=== PATIENT | male | born 1950 | race African-American/Black ===

== ENCOUNTER → 2022-09-18 | Outpatient (CLI) | payer MEDICAID, SELFPAY ==
[2022-09-18 11:49] LABS: Hematocrit 40.8 % (40-54); Hemoglobin 12.9 g/dL (13.0-16.5); Mean Corp Hgb Conc 31.6 g/dL (32-36); Mean Corpuscular Hgb 31.6 pg (27.0-32.0); Mean Platelet Vol. 8.3 fl (6.2-12.0); Platelet Count 215 K/mm3 (150-450); RBC Distribution Width CV 12.8 % (11.6-14.6); RBC Distribution Width SD 46.9 fl (35.1-43.9); Red Blood Count 4.08 M/mm3 (4.6-6.2); White Blood Count 6.7 K/mm3 (4.4-11.0)
[2022-09-18 11:55] LABS: Ammonia < 10.0 umol/L (11-32)
[2022-09-18 12:11] LABS: Valproic Acid (Depakene) Level 63 ug/mL (50-100)
[2022-09-18 12:15] LABS: ALB/GLOB Ratio 0.9 RATIO (0.9-2.4); AST(SGOT) 30 U/L (15-37); Alanine Aminotransfer ALT/SGPT 35 U/L (16-61); Albumin, Serum 3.4 g/dL (3.2-5.0); Alkaline Phosphatase 61 U/L (45-117); Anion Gap 0 (5-15); BUN 10 mg/dL (7-18); Calcium,Total 9.1 mg/dL (8.5-10.1); Chloride 104 mmol/L (98-107); Creatinine, Serum 0.91 mg/dL (0.70-1.30); EST Glomerular Filtration Rate 87 mL/min (>60); Est Glom Filt Rate - Afr Amer 105 mL/min (>60); Globulin 3.8 g/dL (2.2-4.2); Glucose 100 mg/dL (74-106); Potassium 4.4 mmol/L (3.5-5.1); Protein, Total 7.2 g/dL (6.4-8.2); Sodium Level 139 mmol/L (136-145)
[2022-09-18 12:19] LABS: Hemoglobin A1c 4.7 % (3.8-5.6)
== END | disposition home or self-care (01) ==
LOC: LAB 11:18
PROVIDERS: Visit Provider Psychiatry & Neurology Psychiatry
DX: Z79.899 Other long term (current) drug therapy (principal)
CPT/HCPCS: 36415; 80053; 80164; 82140; 83036; 85027

== ENCOUNTER → 2023-05-22 | Outpatient (CLI) | payer MEDICAID, SELFPAY ==
[2023-05-22 08:46] LABS: Hematocrit 43.6 % (40-54); Hemoglobin 13.8 g/dL (13.0-16.5); Mean Corp Hgb Conc 31.7 g/dL (32-36); Mean Corpuscular Hgb 31.2 pg (27.0-32.0); Mean Corpuscular Volume 98.4 fL (80-94); Mean Platelet Vol. 8.1 fl (6.2-12.0); Platelet Count 195 K/mm3 (150-450); RBC Distribution Width CV 12.7 % (11.6-14.6); Red Blood Count 4.43 M/mm3 (4.6-6.2); White Blood Count 6.1 K/mm3 (4.4-11.0)
[2023-05-22 09:12] LABS: Ammonia < 10.0 umol/L (11-32)
[2023-05-22 09:19] LABS: Valproic Acid (Depakene) Level 85 ug/mL (50-100)
[2023-05-22 11:07] LABS: AST(SGOT) 24 U/L (15-37); Alanine Aminotransfer ALT/SGPT 20 U/L (16-61); Albumin, Serum 3.6 g/dL (3.2-5.0); Alkaline Phosphatase 51 U/L (45-117); Anion Gap 3 (5-15); BUN 10 mg/dL (7-18); BUN/Creat Ratio 10.1 RATIO (10-20); Calcium,Total 9.3 mg/dL (8.5-10.1); Chloride 105 mmol/L (98-107); Creatinine, Serum 0.99 mg/dL (0.70-1.30); EST Glomerular Filtration Rate 78 mL/min (>60); Est Glom Filt Rate - Afr Amer 95 mL/min (>60); Globulin 3.5 g/dL (2.2-4.2); Glucose 101 mg/dL (74-106); Potassium 4.3 mmol/L (3.5-5.1); Prolactin 22.8 ng/mL; Protein, Total 7.1 g/dL (6.4-8.2); Sodium Level 140 mmol/L (136-145)
== END | disposition home or self-care (01) ==
PROVIDERS: Referring Provider Psychiatry & Neurology Psychiatry; Visit Provider Psychiatry & Neurology Psychiatry
DX: Z79.899 Other long term (current) drug therapy (principal)
CPT/HCPCS: 36415; 80053; 80164; 82140; 84146; 85027

== ENCOUNTER → 2023-11-07 | Outpatient (CLI) | payer MEDICARE, MEDICAID, SELFPAY ==
[2023-11-07 08:27] LABS: Absolute Lymphocyte Count 2.19 X10^3/uL (0.83-4.51); Absolute Neutrophil Count 2.8 X10^3/uL (2.0-7.7); Basophil# 0.02 X10^3/uL; Basophil% 0.3 % (0-1); Eosinophil# 0.26 X10^3/uL; Eosinophils% 4.5 % (0-5); Hematocrit 42.9 % (40-54); Hemoglobin 13.2 g/dL (13.0-16.5); Lymphocyte # 2.19 X10^3/ul (0.83-4.51); Lymphocyte % 38.1 % (19-41); Mean Corp Hgb Conc 30.8 g/dL (32-36); Mean Corpuscular Hgb 30.6 pg (27.0-32.0); Mean Corpuscular Volume 99.3 fL (80-94); Mean Platelet Vol. 8.7 fl (6.2-12.0); Monocyte# 0.52 X10^3/uL; NRBC Flagged by Analyzer 0 % (0-5); Neutrophil # 2.75 X10^3/uL (2.7-7.7); Neutrophil % 47.9 % (47-70); Platelet Count 211 K/mm3 (150-450); RBC Distribution Width CV 12.3 % (11.6-14.6); RBC Distribution Width SD 45.2 fl (35.1-43.9); Red Blood Count 4.32 M/mm3 (4.6-6.2); White Blood Count 5.8 K/mm3 (4.4-11.0)
--- OUTSIDE RECORDS SUMMARY | 2023-11-07 08:28 | XMS RPT_ITS | CCD ---
Author Name Unknown Address [address] [place] [address] Organization [facility] Care Team Providers Care Registered Route Associate Name Role Phone PHYSICIAN, NONE Primary Care Physician Unavailab le MORGAN HATHAWAY DO Primary Care Physician MORGAN HATHAWAY DO Attending Unavailable MORGAN HATHAWAY DO Primary Care Unavailable KRISTIN DE LOS SANTOS, DR MONTES Attending Unavailable PHYSICIAN, NONE Primary Care Unavailable MORGAN HATHAWAY DO Attending Unavailable MORGAN HATHAWAY DO Primary Care Unavailable Medications Current Medications Medication Drug Class(es) Dates Sig (Normalized) Sig (Original) acetaminophen 325 mg / HYDROcodone bitartrate 5 mg oral tablet (1 source) Opioid Agonist Start: 10-02-2021 End: 10-05-2021 take 1 tablet by mouth every four hours as needed for pain [place] 325- 5 mg oral tablet Dose = 1 tab(s), Oral, q4h, PRN for pain, X 3 day(s), # 12 tab(s), 0 Refill(s), Fracture of humerus, 93 Start Date: 10/02/21 Stop Date: 10/05/21 Status: Ordered benztropine mesylate 1 mg oral tablet (3 sources) Anticholinergic, Antihistamine Start: 11-24-2021 benztropine 1 mg oral tablet Dose : 1 mg = 1 tab(s), Oral, BID, # 60 tab(s), 0 Refill(s) Start Date: 11/24/21 Status: Ordered DME MISCellaneous (1 source) Start: 02-12-2022 DME MISCellaneous See Instructions, dispense one shower chair, dx R26.81., # 1 EA, 0 Refill(s), Gait instability, 195, cm, 11/24/21 9:47:00 EST, Height, 86.5, kg, 11/24/21 9:47:00 EST, Dosing Weight Start Date: 02/12/22 Status: Ordered haloperidol 5 mg oral tablet (3 sources) Typical Antipsychotic Start: 11-24-2021 haloperidol 5 mg oral tablet Dose : 5 mg = 1 tab(s), Oral, BID, # 60 tab(s), 0 Refill(s) Start Date: 11/24/21 Status: Ordered 24 hr mirabegron 25 mg extended release oral tablet (2 sources) beta3-Adrenergic Agonist Start: 12-03-2022 mirabegron 25 mg oral tablet, extended release Dose : 25 mg = 1 tab(s), Oral, qDay, # 30 tab(s), 2 Refill(s), Pharmacy: [id number], Urge incontinence, 195, cm, 12/03/22 14:35:00 EST, Height Start Date: 12/03/22 Status: Ordered divalproex sodium 500 mg delayed release oral tablet (3 sources) Mood Stabilizer, Anti-epileptic Agent Start: 11-24-2021 Depakote 500 mg oral delayed release tablet Dose : 1,000 mg = 2 tab(s), Oral, qHS, 0 Refill(s) Start Date: 11/24/21 Status: Ordered Completed/Discontinued Medications Medication Drug Class(es) Dates Sig (Normalized) Sig (Original) haloperidol decanoate 100 mg/mL intramuscular solution (3 sources) Start: 11-24-2021 haloperidol decanoate 100 mg/mL intramuscular solution Dose : 100 mg = 1 mL, Intramuscular, q4wk, # 1 mL, 0 Refill(s) Start Date: 11/24/21 Status: Ordered Problems Problem Classification Problem Date Documented Date Episodic/Chronic Cancer of prostate (3 sources) History of malignant neoplasm of prostate; Translations: [Personal history of malignant neoplasm of prostate] 12-03-2022 Episodic E Codes: Fall (1 source) Fall in home 02-14-2022 Fracture of upper limb (1 source) Closed fracture of shaft of humerus; Translations: [Unspecified fracture of shaft of humerus, unspecified arm, initial encounter for closed fracture] Onset: 10-02-2021 Episodic Genitourinary symptoms and ill-defined conditions (6 sources) Overflow incontinence of urine; Translations: [Urge incontinence of urine] 12-03-2022 Chronic Mood disorders (4 sources) Bipolar disorder; Translations: [Depressed bipolar I disorder in full remission] 11-24-2021 Chronic Other nervous system disorders (1 source) Abnormal gait 02-14-2022 Episodic Other nervous system disorders (1 source) Tremor 11-24-2021 Episodic Residual codes; unclassified (2 sources) Clubbing of nail 12-03-2022 Episodic Residual codes; unclassified (2 sources) Family history of diabetes mellitus 12-03-2022 Episodic Residual codes; unclassified (1 source) H/O: radiation exposure; Translations: [Personal history of irradiation] Episodic Schizophrenia and other psychotic disorders (2 sources) Schizophrenia 12-03-2022 Chronic Screening and history of mental health and substance abuse codes (2 sources) H/O: psychiatric disorder 12-03-2022 Episodic Unclassified (3 sources) Finding of employment status 11-24-2021 Unclassified (1 source) Intellectual disability 11-24-2021 Unclassified (3 sources) Patient encounter status 11-24-2021 Results Test Name Value Interpretation Reference Range Facil ity Vital Signs Date Time Vital Sign Value Performing Clinician Faci lity 10-02-2021 11:25-0500 Diastolic blood pressure 83 mm[Hg] NATANAEL SANZ MD [facility] 10-02-2021 11:25-0500 Heart rate 52 /min NATANAEL SANZ MD [facility] 10-02-2021 11:25-0500 Respiratory rate 18 /min NATANAEL SANZ MD [facility] 10-02-2021 11:25-0500 Systolic blood pressure 130 mm[Hg] NATANAEL SANZ MD [facility] 10-02-2021 10:19-0500 Body height 183 cm NATANAEL SANZ MD [facility] 10-02-2021 10:19-0500 Body temperature 97.52 [degF] NATANAEL SANZ MD [facility] 10-02-2021 10:19-0500 Body weight 93 kg NATANAEL SANZ MD [facility] 10-02-2021 10:19-0500 Diastolic blood pressure 79 mm[Hg] NATANAEL SANZ MD [facility] 10-02-2021 10:19-0500 Heart rate 61 /min NATANAEL SAZN MD [facility] 10-02-2021 10:19-0500 Respiratory rate 20 /min NATANAEL SANZ MD [facility] 10-02-2021 10:19-0500 Systolic blood pressure 154 mm[Hg] NATNAAEL SANZ MD [facility] Encounters Encounter Date Encounter Type Care Provider Facility Start: 12-20-2022 End: 12-21-2022 ambulatory MORGAN HATHAWAY DO Facility:B Start: 12-20-2022 End: 12-20-2022 Well adult monitoring check done MORGAN HATHAWAY DO [facility] Start: 12-20-2022 End: 12-20-2022 Patient encounter procedure MORGAN HATHAWAY DO [facility] Start: 02-23-2022 End: 02-24-[address] JYOTI FOSTER MD Facility:[facility] Start: 02-23-2022 End: 02-23-[address] JYOTI FOSTER MD [facility] Start: 10-02-2021 End: 10-02-2021 Emergency department patient visit NATNAAEL SANZ MD [facility] Start: 08-04-2021 End: 08-04-[address] JYOTI FOSTER MD [facility] Procedures Date Procedure Procedure Detail Performing Clinician Biopsy NATANAEL Johns History of radiation therapy History of radiation therapy MORGAN HATHAWAY DO Payers Date Payer Category Payer Unknown [id number] 1950 Unknown [id number] 1950 Unknown [id number] 1950 Unknown [id number] Social History Date Type Detail Facility Occasional tobac co smoker (finding) [facility] Sex Assigned At [facility] Start: 10-02-2021 End: 11-24-2021 Smokes tobacco daily (finding) [facility] Evaluation + Plan note 02-23-2022 Note Date & Type Note Facility 02-23-2022 Evaluation + Plan note Diagnostic Tests PendingProlactin Level 02/23/22 [facility] Hospital Discharge instructions 10-02-2021 Note Date & Type Note Facility 10-02-2021 Hospital Discharg e instructions Patient Education 10/02/2021 11:00:15 Understanding a Humerus Fracture Understanding a Humerus Fracture When you have a humerus fracture, it means that your upper arm bone is broken.This type of fracture most often occurs along the middle of the bone or at the end of the bone near the shoulder. Less often, it occurs at the end of the bone near the elbow. This mainly happens in kids or young adults. The bone may be cracked, or it may be broken into 2 or more pieces. The pieces of bone may be lined up or they may have moved out of place. Sometimes, the bone may break through the skin. Nearby nerves, tissues, and joints also may be damaged. Depending on the severity of the fracture, healing may take several months or longer. What causes a humerus fracture? A humerus fracture is most often the result of trauma. This may be from a fall, blow, accident, or sports injury. Symptoms of a humerus fracture Symptoms can include pain, swelling, and bruising. If the bone breaks through the skin, bleeding can occur at the site. It may be hard to move and use the shoulder, arm, or elbow as you would normally. Treating a humerus fracture Treatment depends on where the bone is broken and how serious the break is. If needed, the bone is put back into place. This may be done with or without surgery. If surgery is needed, the surgeon may use devices such as pins, plates, or screws to hold the bone together. You will then wear a sling, splint, or cast to keep the bone in place and protect it from injury during healing. Other treatments may be also used to help reduce symptoms or regain function. These include: Cold packs. Putting an ice pack on the injured area may help reduce swelling and pain. Pain medicines. Taking prescription or rete-smr-pqosthl pain medicines may help reduce pain and swelling. Exercises. Doing certain exercises at home or with a physical therapist can help improve strength, flexibility, and range of motion in the shoulder, arm, or elbow. Possible complications of a humerus fracture These can include: Poor healing of the bone Weakness, stiffness, or loss of range of motion in the shoulder, arm, or elbow Osteoarthritis in the shoulder or elbow When to call your healthcare provider Call your healthcare provider right away if you have any of these: Fever of 100.4 F (38 C) or higher, or as directed Symptoms that don t get better with treatment, or get worse Numbness, tingling, coldness, or swelling in your arm, hand, or fingers Fingernails that turn blue or andrews in color A sling, splint, or cast that is damaged or feels too tight or loose New symptoms [id number] [employer]. [address] [place] [address]. All rights reserved. This information is not intended as a substitute for professional medical care. Always follow your healthcare professional's instructions. Follow Up Care 10/02/2021 10:05:26 With:DO ISAAC ABERNATHY DO Address: When:1-2 days With:Go to emergency room if symptoms worsen Address:Unknown When:2-[address] [facility] Evaluation + Plan note Note Date & Type Note Facility Evaluation + Plan note No data available for this section [facility] Evaluation + Plan note Laboratory Note Date & Type Note Facility Evaluation + Plan note Future Appointments Appointment Date:02/04/2023 02:00:00 PM Scheduled Provider:MORGAN HATHAWAY DO Location:[facility] Appointment Type:[facility] Medicare Future Scheduled TestsMicroalbumin Level Urine 12/03/22Vitamin D Level 12/03/22 [facility] Hospital Discharge instructions Note Date & Type Note Facility Hospital Discharge instructions No data available for this section [facility] Progress note Note Date & Type Note Facility Progress note No data available for this section [facility] Summary Purpose Family History No Family History Records Found Advance Directives No Advanced Directives Records Found Additional Source Comments Patient Care team informatio n (unrecognized section and content) Care Team Personnel Name: MORGAN HATHAWAY DO Position: P4 Physician - Primary Care Member Role: Primary Care Physician Address: Address: [address] [place] [address] [place] [address]- [place] Care Team Related Persons Name: NONE, PER PATIENT (unrecognized sect ion and content) No Status Records Found INFORMATION SOURCE (unrecogn ized section and content) FOR RECORDS PERTAINING TO PATIENTS WHO ARE OR HAVE BEEN ENROLLED IN A CHEMICAL DEPENDENCY/SUBSTANCEABUSE PROGRAM, SOME INFORMATION MAY BE OMITTED. This clinical summary was aggregated from multiple sources. Caution should be exercised in using it in the provision of clinical care. This summary normalizes information from multiple sources, and as a consequence, information in this document may materially change the coding, format and clinical context of patient data. In addition, data may be omitted in some cases. CLINICAL DECISIONS SHOULD BE BASED ON THE PRIMARY CLINICAL RECORDS. [facility] [employer] [facility]. provides no warranty or guarantee of the accuracy or completeness of information in this document.
[2023-11-07 09:02] LABS: Amphetamine Urine VISTA NEGATIVE (<1000 ng/mL); Barbiturate Urine VISTA NEGATIVE (< 200 ng/mL); Benzodiazepine Urine VISTA NEGATIVE (< 200 ng/mL); Cocaine Urine VISTA NEGATIVE (< 300 ng/mL); Ecstacy Urine VISTA NEGATIVE (< 500 ng/mL); Methadone Urine VISTA NEGATIVE (< 300 ng/mL); PCP Urine VISTA NEGATIVE (< 25 ng/mL); THC Urine VISTA POSITIVE (< 50 ng/mL); Vista UDS pH Range 7
[2023-11-07 09:10] LABS: Valproic Acid (Depakene) Level 31 ug/mL (50-100)
[2023-11-07 09:14] LABS: ALB/GLOB Ratio 1.1 RATIO (0.9-2.4); AST(SGOT) 32 U/L (15-37); Alanine Aminotransfer ALT/SGPT 30 U/L (16-61); Albumin, Serum 3.5 g/dL (3.2-5.0); Alkaline Phosphatase 60 U/L (45-117); Anion Gap 0 (5-15); BUN 7 mg/dL (7-18); BUN/Creat Ratio 7.3 RATIO (10-20); Calcium,Total 9.2 mg/dL (8.5-10.1); Chloride 108 mmol/L (98-107); Creatinine, Serum 0.96 mg/dL (0.70-1.30); EST Glomerular Filtration Rate 82 mL/min (>60); Est Glom Filt Rate - Afr Amer 99 mL/min (>60); Globulin 3.3 g/dL (2.2-4.2); Glucose 104 mg/dL (74-106); Potassium 4.9 mmol/L (3.5-5.1); Protein, Total 6.8 g/dL (6.4-8.2); Sodium Level 140 mmol/L (136-145)
[2023-11-07 12:25] LABS: Bacteria 0 SEEN /hpf (None Seen); Mucous, Urine 0 SEEN /hpf (<or=2+); Red Blood Cells-Urine 0 SEEN /hpf (0-5); Squamous Epithelial Cells - UA 0 SEEN /hpf (0-5); White Blood Cells 0 SEEN /hpf (0-5)
[2023-11-07 12:53] LABS: Color, Urine Yellow (Yellow); Glucose, Dipstick Normal (Normal); Ketone-Dipstick Negative (Negative); Leukocyte Esterase-Dipstick Negative /ul (Negative); Nitrite-Dipstick Negative (Negative); Occult Blood-Urine Negative /ul (Negative); Protein-Dipstick Negative (Negative); Urine Bilirubin Dipstick Negative (Negative); Urine Clarity Sl. Cloudy (Clear); Urine Urobilinogen Normal (Normal)
== END | disposition home or self-care (01) ==
PROVIDERS: Referring Provider Psychiatry & Neurology Psychiatry; Visit Provider Psychiatry & Neurology Psychiatry
DX: R41.82 Altered mental status, unspecified (principal); F19.10 Other psychoactive substance abuse, uncomplicated; Z79.899 Other long term (current) drug therapy; R53.83 Other fatigue
CPT/HCPCS: 36415; 80053; 80164; 80307; 81001; 82140; 85025

== ENCOUNTER → 2024-01-15 | Outpatient (CLI) | payer MEDICARE, MEDICAID, SELFPAY ==
[2024-01-15 08:01] LABS: Hematocrit 41.3 % (40-54); Hemoglobin 12.9 g/dL (13.0-16.5); Mean Corp Hgb Conc 31.2 g/dL (32-36); Mean Corpuscular Hgb 30.6 pg (27.0-32.0); Mean Corpuscular Volume 98.1 fL (80-94); Mean Platelet Vol. 8.3 fl (6.2-12.0); Platelet Count 252 K/mm3 (150-450); RBC Distribution Width CV 13.7 % (11.6-14.6); RBC Distribution Width SD 49.4 fl (35.1-43.9); Red Blood Count 4.21 M/mm3 (4.6-6.2); White Blood Count 7.5 K/mm3 (4.4-11.0)
[2024-01-15 09:10] LABS: ALB/GLOB Ratio 0.9 RATIO (0.9-2.4); AST(SGOT) 19 U/L (15-37); Alanine Aminotransfer ALT/SGPT 25 U/L (16-61); Albumin, Serum 3.5 g/dL (3.2-5.0); Alkaline Phosphatase 55 U/L (45-117); Anion Gap 1 (5-15); BUN 10 mg/dL (7-18); BUN/Creat Ratio 11.4 RATIO (10-20); Chloride 104 mmol/L (98-107); Creatinine, Serum 0.88 mg/dL (0.70-1.30); EST Glomerular Filtration Rate 90 mL/min (>60); Est Glom Filt Rate - Afr Amer 109 mL/min (>60); Globulin 3.7 g/dL (2.2-4.2); Glucose 99 mg/dL (74-106); Potassium 4.5 mmol/L (3.5-5.1); Protein, Total 7.2 g/dL (6.4-8.2); Sodium Level 138 mmol/L (136-145); T4 Free Direct 0.84 ng/dL (0.76-1.46); Thyroid Stim Hormone (TSH) 2.55 uIU/mL (0.358-3.74)
== END | disposition home or self-care (01) ==
DX: Z00.00 Encounter for general adult medical examination without abnormal findings (principal); F20.9 Schizophrenia, unspecified; N39.490 Overflow incontinence; N39.41 Urge incontinence; F31.76 Bipolar disorder, in full remission, most recent episode depressed
CPT/HCPCS: 36415; 80053; 84439; 84443; 85027

== ENCOUNTER → 2024-03-11 | Outpatient (CLI) | payer MEDICARE, MEDICAID, SELFPAY ==
[2024-03-11 11:15] LABS: Amphetamine Urine VISTA NEGATIVE (<1000 ng/mL); Barbiturate Urine VISTA NEGATIVE (< 200 ng/mL); Benzodiazepine Urine VISTA NEGATIVE (< 200 ng/mL); Cocaine Urine VISTA NEGATIVE (< 300 ng/mL); Ecstacy Urine VISTA NEGATIVE (< 500 ng/mL); Methadone Urine VISTA NEGATIVE (< 300 ng/mL); PCP Urine VISTA NEGATIVE (< 25 ng/mL); THC Urine VISTA POSITIVE (< 50 ng/mL); Vista UDS pH Range 6
== END | disposition home or self-care (01) ==
LOC: LAB 09:09
PROVIDERS: Referring Provider Psychiatry & Neurology Psychiatry; Visit Provider Psychiatry & Neurology Psychiatry
DX: F19.10 Other psychoactive substance abuse, uncomplicated (principal); Z79.899 Other long term (current) drug therapy
CPT/HCPCS: 80307

== ENCOUNTER 2024-04-24 12:36 | Outpatient (CLI) | payer MEDICARE, MEDICAID, SELFPAY ==
[2024-04-24 14:08] LABS: Vitamin D,25 Hydroxy 68.5 ng/mL
[2024-04-24 14:15] LABS: Thyroid Stim Hormone (TSH) 1.69 uIU/mL (0.358-3.74)
[2024-04-24 14:16] LABS: Hemoglobin A1c 4.7 % (3.8-5.6)
== END 2024-04-24 23:59 | disposition home or self-care (01) ==
LOC: LAB 12:38
DX: Z00.00 Encounter for general adult medical examination without abnormal findings (principal); G20.A1 Parkinson's disease without dyskinesia, without mention of fluctuations; F20.9 Schizophrenia, unspecified; F03.90 Unspecified dementia, unspecified severity, without behavioral disturbance, psychotic disturbance, mood disturbance, and anxiety; N39.41 Urge incontinence; N39.490 Overflow incontinence; Z86.59 Personal history of other mental and behavioral disorders
CPT/HCPCS: 36415; 82306; 83036; 84443

== ENCOUNTER → 2024-05-21 | Outpatient (CLI) | payer MEDICARE, MEDICAID, SELFPAY ==
[2024-05-21 08:27] LABS: Hematocrit 39.4 % (40-54); Hemoglobin 12.2 g/dL (13.0-16.5); Mean Corpuscular Hgb 30.5 pg (27.0-32.0); Mean Corpuscular Volume 98.5 fL (80-94); Mean Platelet Vol. 8.6 fl (6.2-12.0); Platelet Count 192 K/mm3 (150-450); RBC Distribution Width CV 12.7 % (11.6-14.6); RBC Distribution Width SD 46.3 fl (35.1-43.9); White Blood Count 6.5 K/mm3 (4.4-11.0)
[2024-05-21 08:52] LABS: Amphetamine Urine VISTA NEGATIVE (<1000 ng/mL); Barbiturate Urine VISTA NEGATIVE (< 200 ng/mL); Benzodiazepine Urine VISTA NEGATIVE (< 200 ng/mL); Cocaine Urine VISTA NEGATIVE (< 300 ng/mL); Ecstacy Urine VISTA NEGATIVE (< 500 ng/mL); Methadone Urine VISTA NEGATIVE (< 300 ng/mL); PCP Urine VISTA NEGATIVE (< 25 ng/mL); THC Urine VISTA NEGATIVE (< 50 ng/mL); Vista UDS pH Range 6
[2024-05-21 08:58] LABS: Valproic Acid (Depakene) Level 44 ug/mL (50-100)
[2024-05-21 09:04] LABS: ALB/GLOB Ratio 0.9 RATIO (0.9-2.4); AST(SGOT) 27 U/L (15-37); Alanine Aminotransfer ALT/SGPT 9 U/L (16-61); Albumin, Serum 3.3 g/dL (3.2-5.0); Alkaline Phosphatase 66 U/L (45-117); Anion Gap 3 (5-15); BUN 14 mg/dL (7-18); BUN/Creat Ratio 14.2 RATIO (10-20); Calcium,Total 9.1 mg/dL (8.5-10.1); Chloride 106 mmol/L (98-107); Creatinine, Serum 0.99 mg/dL (0.70-1.30); EST Glomerular Filtration Rate 79 mL/min (>60); Est Glom Filt Rate - Afr Amer 95 mL/min (>60); Globulin 3.6 g/dL (2.2-4.2); Glucose 96 mg/dL (74-106); Potassium 4.6 mmol/L (3.5-5.1); Protein, Total 6.9 g/dL (6.4-8.2); Sodium Level 140 mmol/L (136-145)
[2024-05-21 09:11] LABS: Hemoglobin A1c 4.6 % (3.8-5.6)
== END | disposition home or self-care (01) ==
LOC: LAB 07:45
PROVIDERS: Referring Provider Psychiatry & Neurology Psychiatry; Visit Provider Psychiatry & Neurology Psychiatry
DX: Z00.00 Encounter for general adult medical examination without abnormal findings (principal); Z79.899 Other long term (current) drug therapy
CPT/HCPCS: 36415; 80053; 80164; 80307; 82140; 83036; 84443; 85027

== ENCOUNTER → 2024-10-07 | Outpatient (CLI) | payer MEDICARE, MEDICAID, SELFPAY ==
[2024-10-07 08:26] LABS: Hematocrit 35.7 % (40-54); Hemoglobin 11.1 g/dL (13.0-16.5); Mean Corp Hgb Conc 31.1 g/dL (32-36); Mean Corpuscular Hgb 31.5 pg (27.0-32.0); Mean Corpuscular Volume 101.4 fL (80-94); Mean Platelet Vol. 8.3 fl (6.2-12.0); Platelet Count 199 K/mm3 (150-450); RBC Distribution Width CV 13.9 % (11.6-14.6); RBC Distribution Width SD 50.7 fl (35.1-43.9); Red Blood Count 3.52 M/mm3 (4.6-6.2); White Blood Count 6.9 K/mm3 (4.4-11.0)
[2024-10-07 08:39] LABS: Color, Urine Yellow (Yellow); Glucose, Dipstick Normal (Normal); Ketone-Dipstick 5 mg/dl (Negative); Leukocyte Esterase-Dipstick 25 /ul (Negative); Nitrite-Dipstick Negative (Negative); Occult Blood-Urine 10 /ul (Negative); Protein-Dipstick 15 mg/dl (Negative); Urine Bilirubin Dipstick Negative (Negative); Urine Clarity Clear (Clear); Urine Urobilinogen 1 mg/dl (Normal)
[2024-10-07 08:56] LABS: Amphetamine Urine VISTA NEGATIVE (<1000 ng/mL); Barbiturate Urine VISTA NEGATIVE (< 200 ng/mL); Benzodiazepine Urine VISTA NEGATIVE (< 200 ng/mL); Cocaine Urine VISTA NEGATIVE (< 300 ng/mL); Ecstacy Urine VISTA NEGATIVE (< 500 ng/mL); Methadone Urine VISTA NEGATIVE (< 300 ng/mL); PCP Urine VISTA NEGATIVE (< 25 ng/mL); THC Urine VISTA POSITIVE (< 50 ng/mL); Vista UDS pH Range 5
[2024-10-07 09:02] LABS: Valproic Acid (Depakene) Level 11 ug/mL (50-100)
[2024-10-07 09:05] LABS: ALB/GLOB Ratio 0.9 RATIO (0.9-2.4); AST(SGOT) 66 U/L (15-37); Alanine Aminotransfer ALT/SGPT 22 U/L (16-61); Albumin, Serum 3.3 g/dL (3.2-5.0); Alkaline Phosphatase 80 U/L (45-117); Anion Gap 6 (5-15); BUN 15 mg/dL (7-18); Calcium,Total 9.1 mg/dL (8.5-10.1); Chloride 104 mmol/L (98-107); EST Glomerular Filtration Rate 78 mL/min (>60); Est Glom Filt Rate - Afr Amer 94 mL/min (>60); Globulin 3.5 g/dL (2.2-4.2); Glucose 131 mg/dL (74-106); Potassium 4.5 mmol/L (3.5-5.1); Protein, Total 6.8 g/dL (6.4-8.2); Sodium Level 140 mmol/L (136-145)
[2024-10-08 06:08] LABS: PROLACTIN 16.1 ng/mL (3.6-25.2)
== END | disposition home or self-care (01) ==
LOC: LAB 08:01
PROVIDERS: Referring Provider Psychiatry & Neurology Psychiatry; Visit Provider Psychiatry & Neurology Psychiatry
DX: F19.10 Other psychoactive substance abuse, uncomplicated (principal); Z79.899 Other long term (current) drug therapy; R53.83 Other fatigue
CPT/HCPCS: 36415; 80053; 80164; 80307; 81002; 82140; 84146; 85027